=== PATIENT | male | born 1995 | race Caucasian/White ===

== ENCOUNTER 2017-02-12 20:20 | Emergency (ER) | payer OTHER | END 2017-02-12 20:54 | disposition home or self-care (01) | LOC: ER1 20:20 | DX: L23.7 Allergic contact dermatitis due to plants, except food (principal); K21.9 Gastro-esophageal reflux disease without esophagitis; I10 Essential (primary) hypertension; F17.210 Nicotine dependence, cigarettes, uncomplicated; Z79.899 Other long term (current) drug therapy | CPT/HCPCS: 96372; 99282; J1100 ==

== ENCOUNTER 2022-08-08 18:42 | Emergency (ER) | payer SELFPAY ==
[2022-08-08] MEDS ORDERED: CYCLOBENZAPRINE10 MG PO (22:47)
[2022-08-08] MEDS ORDERED: MELOXICAM15 MG PO (22:47)
== END 2022-08-08 22:55 | disposition home or self-care (01) ==
LOC: ER1 18:42
DX: S09.90XA Unspecified injury of head, initial encounter (principal); S16.1XXA Strain of muscle, fascia and tendon at neck level, initial encounter; S29.012A Strain of muscle and tendon of back wall of thorax, initial encounter; M79.604 Pain in right leg; M79.605 Pain in left leg; K21.9 Gastro-esophageal reflux disease without esophagitis; J45.909 Unspecified asthma, uncomplicated; F17.200 Nicotine dependence, unspecified, uncomplicated; Z79.899 Other long term (current) drug therapy; W01.10XA Fall on same level from slipping, tripping and stumbling with subsequent striking against unspecified object, initial encounter
CPT/HCPCS: 70450; 72125; 72128; 72131; 99283